=== PATIENT | female | born 1950 | race Caucasian/White ===

== ENCOUNTER → 2016-09-25 | Outpatient (CLI) | payer OTHER | LOC: FIMAGING 15:38 | PROVIDERS: ATTEND Internal Medicine | DX: M23.242 Derangement of anterior horn of lateral meniscus due to old tear or injury, left knee (principal); M25.462 Effusion, left knee; M65.862 Other synovitis and tenosynovitis, left lower leg ==

== ENCOUNTER → 2017-01-30 | Outpatient (CLI) | payer OTHER, BC | LOC: BRMIMAGING 14:44 | PROVIDERS: ATTEND Orthopaedic Surgery Sports Medicine | DX: M25.562 Pain in left knee (principal) | CPT/HCPCS: 93971-PO ==

== ENCOUNTER → 2017-03-24 | Outpatient (CLI) | payer OTHER, BC | LOC: CIMAGING 14:19 | PROVIDERS: ATTEND Internal Medicine | DX: J40 Bronchitis, not specified as acute or chronic (principal) | CPT/HCPCS: 71046-PO ==